=== PATIENT | male | born 1985 | race Caucasian/White ===

== ENCOUNTER 2017-08-03 12:12 | Emergency (ER) | payer MEDICAID ==
[2017-08-03 13:56] LABS: BASO % 0.4 % (0-6); EOS % 1.6 % (0-6); GRAN % 67.8 % (47-80); HEMATOCRIT 45.1 % (42.0-52.0); HEMOGLOBIN 15.5 gm/dl (14.0-18.0); LYMPH % 21.7 % (16-45); MEAN CELL VOLUME 88.3 fl (81-97); MEAN CORPUSCULAR HEMOGLOBIN 30.3 pg (27-33); MEAN CORPUSCULAR HGB CONC 34.4 g/dl (32-36); MEAN PLATELET VOLUME 11.8 fl (7.4-10.4); MONO % 8.5 % (0-9); PLATELET COUNT 220 K/uL (130-400); RED BLOOD COUNT 5.11 M/uL (4.40-5.70); RED CELL DISTRIBUTION WIDTH 13.1 % (11.5-14.5); WHITE BLOOD COUNT W/O DIFF 8.4 K/uL (4.2-12.2)
[2017-08-03 13:57] LABS: URINE APPEARANCE CLEAR; URINE BILIRUBIN NEGATIVE (NEGATIVE); URINE BLOOD SMALL (NEGATIVE); URINE COLOR YELLOW; URINE GLUCOSE (UA) NEGATIVE (NEGATIVE); URINE KETONE NEGATIVE (NEGATIVE); URINE LEUKOCYTE ESTERASE NEGATIVE (NEGATIVE); URINE NITRITE NEGATIVE (NEGATIVE); URINE PROTEIN NEGATIVE (NEGATIVE); URINE UROBILINOGEN 0.2 E.U./dL (0.20 - 1.00)
[2017-08-03 14:02] LABS: AMPHETAMINE SCREEN URINE NOT DETECTED; BARBITURATE SCREEN URINE NOT DETECTED; BENZODIAZEPINE SCREEN URINE NOT DETECTED; COCAINE SCREEN URINE NOT DETECTED; METHADONE SCREEN URINE NOT DETECTED; METHAMPHETAMINE SCREEN NOT DETECTED; OPIATE SCREEN URINE NOT DETECTED; OXYCODONE SCREEN URINE NOT DETECTED; PHENCYCLIDINE SCREEN URINE NOT DETECTED; PROPOXYPHENE SCREEN URINE NOT DETECTED; THC SCREEN URINE NOT DETECTED; TRICYCLIC ANTIDEPRESSANT SCRN NOT DETECTED
[2017-08-03 14:08] LABS: BLOOD UREA NITROGEN 13 mg/dL (6-20); CREATININE 0.7 mg/dL (0.7-1.2); EST GLOMERULAR FILTRATION RATE > 60 mL/min
[2017-08-03 14:10] LABS: URINE BACTERIA FEW; URINE EPITHELIAL CELLS 0 - 2 (FEW); URINE WBC 0 - 2 (0-2/hpf)
[2017-08-03 14:11] LABS: GLUCOSE,RANDOM 110 mg/dL (74-109)
[2017-08-03 14:14] LABS: LIPASE 17 U/L (13-60)
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
--- NOTE | 2017-08-06 09:07 | CT SCAN REPORT ---
EXAM: CT OF THE BRAIN WITHOUT CONTRAST HISTORY: INJURY. TECHNIQUE: Sequential axial images were obtained from the foramen magnum to the vertex without contrast administration. FINDINGS: The brain volume is normal. There is no large territorial infarct, hemorrhage, mass effect, or midline shift. No extraaxial fluid collection. The orbits, paranasal sinuses, and mastoid air cells are normal. No depressed skull fracture. IMPRESSION: NO ACUTE INTRACRANIAL ABNORMALITY IS APPRECIATED. JOB NUMBER: [id number] MTDD
--- NOTE | 2017-08-06 09:09 | CT SCAN REPORT ---
EXAM: CT OF THE CERVICAL SPINE HISTORY: INJURY. TECHNIQUE: Sequential axial images were obtained through the cervical spine without intravenous contrast administration. Sagittal and coronal reformatted images were performed. FINDINGS: There is no evidence of fracture, subluxation, or perched facet. The lateral masses are well aligned. The prevertebral soft tissues are normal. IMPRESSION: NEGATIVE CT EXAMINATION OF THE CERVICAL SPINE. JOB NUMBER: [id number] MTDD
--- NOTE | 2017-08-06 09:13 | CT SCAN REPORT ---
EXAM: CT OF THE FACIAL BONES WITHOUT CONTRAST HISTORY: INJURY. TECHNIQUE: Sequential axial images were obtained through the facial bones without intravenous contrast administration. Sagittal and coronal reformatted images were performed. FINDINGS: The orbits, paranasal sinuses and mastoid air cells appear normal. The orbital rims are intact. The zygomatic arches are intact. The mandible is intact. IMPRESSION: NEGATIVE CT EXAMINATION OF THE FACIAL BONES. JOB NUMBER: [id number] MTDD
--- NOTE | 2017-08-06 09:22 | CT SCAN REPORT ---
EXAM: CT OF THE CHEST WITH CONTRAST HISTORY: INJURY. TECHNIQUE: Sequential axial images were obtained from the thoracic inlet through the bilateral adrenal glands after intravenous administration of 100 ml of Omnipaque 300 contrast material. FINDINGS: The mediastinal vasculature enhances normally. The heart and pericardium appear normal. The lung salas are clear. No infiltrate or pleural effusion. There are nondisplaced right anterior fifth, sixth, and seventh rib fracture deformities. The sternum is intact. The thoracic spine is intact. IMPRESSION: NONDISPLACED FRACTURE DEFORMITIES OF THE RIGHT LATERAL FIFTH, SIXTH, AND SEVENTH RIBS. NO PNEUMOTHORAX. JOB NUMBER: [id number] [facility]
--- NOTE | 2017-08-06 09:31 | CT SCAN REPORT ---
EXAM: CT OF THE ABDOMEN AND PELVIS WITH CONTRAST HISTORY: INJURY. TECHNIQUE: Sequential axial images were obtained from the diaphragms through the ischiorectal fossa after intravenous and oral administration of 100 ml of Omnipaque 300 contrast material. FINDINGS: The visualized lung bases appear normal. The liver, gallbladder, pancreas, and spleen appear normal. The adrenal glands and kidneys appear normal. The small and large bowel appears normal. The appendix is visualized and appears normal. The colon appears normal. The urinary bladder appears grossly unremarkable. The Schmorl's node versus superior end plate compression fracture deformity of T12. There is minimal loss of height. The remainder of the osseous structures appear normal. IMPRESSION: MILD SUPERIOR END PLATE DEFORMITY OF T12 WHICH MAY REPRESENT A SCHMORL'S NODE VERSUS END PLATE COMPRESSION FRACTURE DEFORMITY. MINIMALLY DISPLACED FRACTURE DEFORMITY OF THE RIGHT L5 TRANSVERSE PROCESS. JOB NUMBER: [id number] MTDD
== END 2017-08-03 15:48 | disposition home or self-care (01) ==
LOC: ER 12:12
DX: S32.058A Other fracture of fifth lumbar vertebra, initial encounter for closed fracture (principal); S22.41XA Multiple fractures of ribs, right side, initial encounter for closed fracture; S09.90XA Unspecified injury of head, initial encounter; R31.29 Other microscopic hematuria; M54.2 Cervicalgia; R51 Headache; R07.81 Pleurodynia; V86.55XA Driver of 3- or 4- wheeled all-terrain vehicle (ATV) injured in nontraffic accident, initial encounter
CPT/HCPCS: 99284 ×2; 83690; 85025; 85730; 80048; 81001; 80305; 72125; 71260; 70450; 70486; 74177; 93005; 93010; Q9967